=== PATIENT | female | born 1990 ===

== ENCOUNTER 2017-05-05 12:21 | Emergency (ER) | payer SELFPAY ==
[2017-05-05 12:21] VITALS: BMI 45.6
[2017-05-05] MEDS ORDERED: Aspirin 325 mg EC Tablets PO STA (13:18)
[2017-05-05 13:31] LABS: BASO % 0.4 % (0.0-2.0); EOS # 0.1 K/uL (0.0-0.7); EOS % 1.4 % (0.0-4.0); HEMATOCRIT 39.2 % (34.0-47.0); LYMPH % 30.7 % (20.0-40.0); MEAN CELL VOLUME 85.4 fL (81.0-99.0); MEAN CORPUSCULAR HEMOGLOBIN 28.3 pg (27.0-31.0); MEAN CORPUSCULAR HGB CONC 33.1 g/dL (33.0-37.0); MEAN PLATELET VOLUME 10.4 fL (7.2-11.7); MONO # 0.8 K/uL (0.0-0.8); MONO % 8.4 % (0.0-10.0); RED CELL DISTRIBUTION WIDTH 13.8 % (11.5-14.5); WHITE BLOOD COUNT 9.7 K/uL (4.8-10.8)
--- NOTE | 2017-05-05 13:37 | RAD ---
HISTORY: chest pain COMPARISON: Chest x-ray performed 03/21/16 TECHNIQUE: Chest, one view. FINDINGS: Examination limited by habitus. LUNGS: No focal consolidation. Please note that chest x-ray has limited sensitivity for the detection of pulmonary masses. PLEURA: No significant pleural effusion identified. No definite pneumothorax . CARDIOVASCULAR: The cardiomediastinal silhouette appears within normal limits of size. OSSEOUS STRUCTURES: No acute osseous abnormality identified. VISUALIZED UPPER ABDOMEN: Unremarkable. OTHER FINDINGS: None. IMPRESSION: No focal consolidation, significant pleural effusion, or definite pneumothorax identified.
[2017-05-05 13:42] LABS: CHLORIDE 100 mmol/L (98-107)
--- NOTE | 2017-05-05 13:42 | C.PDOC ---
History Of Present Illness 26 year old female presents to the ED with complaints of chest pain that began last night while laying in bed. Patient describes the pain as a mid-sternal pressure that radiates to her left arm. She notes left arm numbness, trouble taking a breath, sweating, and nausea since last night. Patient denies experiencing similar symptoms in the past, fever, chills, or vomiting. She has no cough or URI symptoms. 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 Time Seen by Provider: 05/05/17 13:12 Chief Complaint (Nursing): Chest Pain History Per: Patient History/Exam Limitations: no limitations Onset/Duration Of Symptoms: Hrs Current Symptoms Are (Timing): Still Present Quality: Pressure Associated Symptoms: Nausea, Diaphoresis Modifying Factors: None Exacerbating Factors: None Alleviating Factors: None Recent travel outside of the [place]: No Past Medical History Reviewed: Historical Data, Nursing Documentation, Vital Signs Vital Signs: Last Vital Signs Temp 98.4 F 05/05/17 12:27 Pulse 88 05/05/17 12:27 Resp 18 05/05/17 12:27 BP 112/73 05/05/17 12:27 Pulse Ox 98 05/05/17 13:57 - Medical History PMH: Gall Bladder Disease Surgical History: Cholecystectomy (2010) - [facility] INJECT/INFUSE NEC (05/14/14) MANUAL ASSIST DELIV NEC (11/21/14) Family History: States: CAD (grandmother ), Hypertension (gradnmother ) - Social History Hx Tobacco Use: No Hx Alcohol Use: No Hx Substance Use: No - Immunization History Hx Tetanus Toxoid Vaccination: No Hx Influenza Vaccination: Yes Hx Pneumococcal Vaccination: No Review Of Systems Constitutional: Negative for: Fever, Chills Cardiovascular: Positive for: Chest Pain. Negative for: Palpitations Respiratory: Positive for: Other (trouble breathing ). Negative for: Cough Gastrointestinal: Positive for: Nausea. Negative for: Vomiting, Abdominal Pain , Diarrhea Neurological: Positive for: Numbness (left arm ). Negative for: Weakness Physical Exam - Physical Exam Appears: Non-toxic, No Acute Distress Skin: Warm, Dry Head: Atraumatic Eye(s): bilateral: Normal Inspection, EOMI Oral Mucosa: Moist Neck: Supple Chest: Symmetrical, No Deformity, Tenderness (left chest wall.) Cardiovascular: Rhythm Regular, No Murmur Respiratory: Normal Breath Sounds, No Rhonchi, No Stridor, No Wheezing Gastrointestinal/Abdominal: Soft, No Tenderness, No Distention, No Guarding, No Rebound Extremity: Normal ROM, No Tenderness, No Pedal Edema, No Calf Tenderness, No Deformity, No Swelling Neurological/Psych: Oriented x3, Normal Speech, Normal Cognition, Normal Cranial Nerves, Normal Motor, Normal Sensation ED Course And Treatment - Laboratory Results Result Diagrams: 05/05/17 13:26 05/05/17 13:26 Lab Interpretation: Normal ECG: Interpreted By Me, Viewed By Me ECG Rhythm: Sinus Rhythm (78 bpm ) ECG Interpretation: Normal O2 Sat by Pulse Oximetry: 98 (room air ) Pulse Ox Interpretation: Normal - Radiology CXR: Viewed By Me, Read By Radiologist CXR Interpretation: Yes: No Acute Disease Progress Note: EKG and labs were ordered. Patient was given Ecotrin. Reevaluation Time: 14:05 Reassessment Condition: Improved (Remains comfortable in ED. No distress.) Disposition Counseled Patient/Family Regarding: Studies Performed, Diagnosis, Need For Followup - Disposition Referrals: [facility] [Outside] Disposition: HOME/ ROUTINE Disposition Time: 14:05 Condition: IMPROVED Additional Instructions: Take Ibuprophen 2-3 tablets every 6 hours with food if needed for pain. Instructions: Chest Wall Pain (ED) Forms: [facility] (Luxembourgish) Print Language: MOHAWK - Clinical Impression Clinical Impression: Chest pain - Scribe Statement The provider has reviewed the documentation as recorded by the Scribe Ashley Peoples All medical record entries made by the Scribe were at my direction and personally dictated by me. I have reviewed the chart and agree that the record accurately reflects my personal performance of the history, physical exam, medical decision making, and the department course for this patient. I have also personally directed, reviewed, and agree with the discharge instructions and disposition.
[2017-05-05 13:43] LABS: POTASSIUM 3.7 mmol/L (3.6-5.2); SODIUM 138 mmol/L (132-148)
[2017-05-05 13:45] LABS: ALKALINE PHOSPHATASE 73 U/L (38-126); ALT/SGPT 19 U/L (9-52); AST/SGOT 19 U/L (14-36); BILIRUBIN,TOTAL 0.5 mg/dL (0.2-1.3); BLOOD UREA NITROGEN 14 mg/dL (7-17); CARBON DIOXIDE 27 mmol/L (22-30); GFR AFRICAN-AMERICAN > 60; GLUCOSE,RANDOM 85 mg/dL (65-105); TOTAL PROTEIN 7.2 g/dL (6.3-8.3)
[2017-05-05 13:46] LABS: CALCIUM 9.4 mg/dl (8.6-10.4)
[2017-05-05 14:19] VITALS: BP 102/58; PULSE 68; RESP 20; TEMP 97.8; O2SAT 97
--- NOTE | 2017-05-06 12:59 | CARD ---
APPROVED REPORT EKG Measurement Heart [id number] <Conclusion> Normal sinus rhythm Normal ECG
== END 2017-05-05 14:24 | disposition home or self-care (01) ==
LOC: C.ER 12:21
DX: R07.89 Other chest pain (principal)